=== PATIENT | male | born 1990 | race Hispanic/Latino ===

== ENCOUNTER 2021-03-17 18:22 | Emergency (ER) | payer SELFPAY ==
[~2021-03-17] VITALS: Ht 172.7 cm; Wt 117.9 kg
[2021-03-17 19:14] LABS: BASOPHILS % 0.5 % (0.0-1.0); EOSINOPHILS # (AUTO) 0.1 (0.0-0.4); HEMATOCRIT 42.1 % (38.2-49.6); HEMOGLOBIN 14.3 g/dL (14.0-18.0); LYMPHOCYTES # (AUTO) 1.9 (1.0-3.2); LYMPHOCYTES % 23.2 % (18.0-39.1); MEAN CORPUSCULAR HEMOGLOBIN 31.1 pg (28-32); MEAN CORPUSCULAR VOLUME 91.5 fL (81-99); MONOCYTES # (AUTO) 0.6 (0.2-0.8); MONOCYTES % 7.3 % (4.4-11.3); NEUTROPHILS # (AUTO) 5.4 (2.1-6.9); NEUTROPHILS % 67.6 % (38.7-80.0); PLATELET COUNT 210 x10e3/uL (140-360); RED CELL DISTRIBUTION WIDTH 12.2 % (11.7-14.4)
[2021-03-17 19:20] LABS: AMPHETAMINES SCREEN,URINE NEGATIVE (NEGATIVE); BENZODIAZEPINES SCREEN,URINE NEGATIVE (NEGATIVE); PHENCYCLIDINE SCREEN,URINE NEGATIVE (NEGATIVE)
[2021-03-17 19:27] LABS: ALBUMIN 4.3 g/dL (3.5-5.0); ALBUMIN/GLOBULIN RATIO 1.2 (0.8-2.0); ANION GAP 16.5 mmol/L (8-16); CALCIUM 9.4 mg/dL (8.4-10.2); CREATININE, SERUM 0.81 mg/dL (0.72-1.25); POTASSIUM 3.5 mmol/L (3.5-5.1)
[2021-03-17 19:33] LABS: CREATINE KINASE MB 0.7 ng/mL (0-5.0)
[2021-03-17 20:59] VITALS: BP 147/98
== END 2021-03-17 21:02 | disposition home or self-care (01) ==
LOC: ER 18:26
DX: R07.89 Other chest pain (principal); R06.02 Shortness of breath; R00.2 Palpitations
CPT/HCPCS: 36415; 71045; 80053; 80307; 82550; 82553; 83880; 84484; 85025; 85379; 93005; 99284